=== PATIENT | male | born 2000 | race Caucasian/White ===

== ENCOUNTER 2020-12-20 20:33 | Emergency (ER) | payer SELFPAY ==
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
[2020-12-20 20:38] VITALS: BP 134/95; PULSE 76; RESP 16; TEMP 36.7; O2SAT 99; BMI 25.1
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
[2020-12-20 20:50] VITALS: BP 134/95; PULSE 89; RESP 16; O2SAT 100
[2020-12-20] MEDS: oxymetazoline 0.05% Nasal Spray 15 mL 2 SPRAY NOSTRIL-B (20:53)
[2020-12-20] MEDS: HYDROcodone-acetaminophen 5-325 mg Tablet 1 TAB PO (20:53)
[2020-12-20] MEDS: ondansetron 4 MG Tablet PO (21:16)
[2020-12-20 22:16] VITALS: BP 133/91; PULSE 62; RESP 16; O2SAT 99
--- NOTE | 2020-12-22 10:14 | DCPLANNER ---
Addendum entered by Clara Atkins 12/25/20 15:14: certified wellness program manager was notified that clinic attempted to contact patient, was unable to contact patient. Phone had a busy signal, unable to speak with patient and unable to leave a voicemail for patient. Original Note: certified wellness program manager had message to schedule a follow up appointment for patient with ENT for nasal fracture. certified wellness program manager emailed patients information to Marie Bain and Rebecca at [facility] General Surgery / ENT clinic. Patients information will be printed and reviewed. Clinic will call patient with appointment information.
== END 2020-12-20 22:18 | disposition home or self-care (01) ==
PROVIDERS: Emergency Provider Nurse Practitioner Family
DX: S02.2XXA Fracture of nasal bones, initial encounter for closed fracture (principal); S02.40DA Maxillary fracture, left side, initial encounter for closed fracture; F17.210 Nicotine dependence, cigarettes, uncomplicated; Y04.8XXA Assault by other bodily force, initial encounter
CPT/HCPCS: 70450; 70486; 99283; Q0162